=== PATIENT | male | born 1975 | race Caucasian/White ===

== ENCOUNTER 2017-02-07 18:05 | Emergency (ER) | payer OTHER ==
--- NOTE | 2017-02-07 19:35 | RAD ---
INDICATION: Right testicular pain. COMPARISON: There are no prior studies available for comparison. TECHNIQUE: Multiple real-time images of the testicles were obtained including color Doppler images and Doppler tracings. FINDINGS: The testicles are normal in size, shape and echogenicity. The right testicle measured 4.0 x 2.3 x 3.1 cm and the left testicle measured 4.1 x 2.0 x 2.7 cm. No intratesticular mass is seen. There is symmetric vascular flow within both testicles. The epididymides appear to be within normal limits. IMPRESSION: NEGATIVE EXAM.
[2017-02-07 20:59] LABS: Urine Bilirubin Negative (Negative); Urine Glucose Negative (Negative); Urine Nitrite Negative (Negative)
[2017-02-07 21:01] LABS: Hematocrit 45 % (42-52); Hemoglobin 15.2 g/dl (14.0-18.0); Mean Corpuscular HGB Conc 34 g/dl (31-36); Mean Corpuscular Hemoglobin 27 pg (27-31); Mean Corpuscular Volume 80 fL (80-94); Mean Platelet Volume 7 um3 (7.4-10.4); Red Blood Count 5.61 10^6/ul (4.0-5.4); Red Cell Distribution Width 13 % (10.5-15); White Blood Count 8.5 10^3/ul (3.5-10.8)
[2017-02-07 21:18] LABS: BUN/Creatinine Ratio 13.1 (8-20); Calcium 9.8 mg/dL (8.6-10.3); EGFR African American 97.9 (>60); EGFR Non-African American 76.2 (>60); Globulin 2.6 g/dL (2-4); Potassium 3.9 mmol/L (3.5-5.0); Total Bilirubin 0.4 mg/dL (0.2-1.0); Total Protein 7.6 g/dL (6.4-8.9)
[2017-02-07] MEDS ORDERED: Ketorolac INJ* 30 MG/ML 1 ML VIAL IV PUSH ONE (21:22)
[2017-02-07] MEDS ORDERED: Ciprofloxacin TAB* 500 MG PO ONE (21:52)
[2017-02-08 00:54] VITALS: BP 106/85
--- NOTE | 2017-02-09 09:28 | ED ---
Usman Matta Aidan, scribed for Heriberto Jaeger MD on 02/07/17 at 2147 . GI/ HPI - HPI Summary HPI Summary: 41 y/o male presents to the ED with a complaint of acute, constant, moderate (5/ 10) right testicular pain that began 6 days ago and has persisted since. The pain often radiates up to his RLQ when he is seated. Last week, his right testicle ascended up for some time. Currently, his right testicle is more ascended than his left. Standing up and masturbating aggravates his testicular pain. Though Naproxen did not alleviate any pain, Ibuprofen mildly alleviated his pain. Associated symptoms include right testicular numbness and tingling. Pt denies any blood, discharge, recent injury, or difficulty urinating. - History of Current Complaint Chief Complaint: EDUrogenitalProblems Time Seen by Provider: 02/07/17 20:17 Stated Complaint: PELVIC PAIN-SENT FROM [facility] Obtained From: Patient Onset/Duration: Started Days Ago, Still Present Timing: Constant, Lasting Days Severity: Moderate Current Severity: Moderate Pain Intensity: 5 Location of Pain: Groin - right testicle Additional Locations for Males: Testicles - right testicle and groin Pain Characteristics: Sharp, Other: - some numbness and tingling in right testicle Pain Radiates to: RLQ Associated Signs and Symptoms: Positive: Other: - episodes of numbness and tingling in right testicle Aggravating Factor(s): Movement - standing up and masturbation aggravates the pain Alleviating Factor(s): OTC Analgesics - Ibuprofen mildly alleviated pain - Allergy/Home Medications Allergies/Adverse Reactions: Allergies Allergy/AdvReac Type Severity Reaction Status Date / Time No Known Allergies Allergy Verified 02/07/17 18:24 PMH/Surg Hx/FS Hx/Imm Hx - Immunization History Date of Tetanus Vaccine: utd Date of Influenza Vaccine: none Infectious Disease History: No Infectious Disease History: Denies: Traveled Outside the [place] in Last 30 Days - Social History Occupation: Student Lives: Alone Alcohol Use: Weekly Alcohol Amount: 1-2 Substance Use Type: Reports: None Smoking Status (MU): Never Smoked Tobacco Review of Systems Negative: Fever, Chills, Fatigue, Skin Diaphoresis Negative: Photophobia, Blurred Vision, Diplopia, Drainage, Erythema Negative: Epistaxis, Dental Pain, Sore Throat, Ear Ache, Nasal Discharge Negative: Palpitations, Chest Pain Negative: Shortness Of Breath, Cough Negative: Abdominal Pain, Vomiting, Diarrhea, Nausea Genitourinary: Other - right testicular pain, numbness, and tingling Negative: burning, dysuria, discharge, frequency, flank pain, hematuria, incontinence, urgency Negative: Arthralgia, Myalgia, Decreased ROM, Edema Negative: Rash, Bruising Negative: Headache, Weakness, Paresthesia, Numbness, Syncope, Slurred Speech Negative: Anxious, Depressed All Other Systems Reviewed And Are Negative: Yes Physical Exam - Summary Physical Exam Summary: Constitutional: Well-developed, Well-nourished, Alert. (-) Distressed Skin: Warm, Dry HENT: Normocephalic; Atraumatic Eyes: Conjunctiva normal Neck: Musculoskeletal ROM normal neck. (-) JVD, (-) Stridor, (-) Tracheal deviation Cardio: Rhythm regular, rate normal, Heart sounds normal; Intact distal pulses; The pedal pulses are 2+ and symmetric. Radial pulses are 2+ and symmetric. (-) Murmur Pulmonary/Chest wall: Effort normal. (-) Respiratory distress, (-) Wheezes, (-) Rales Abd: Soft, (-) Tenderness, (-) Distension, (-) Guarding, (-) Rebound Musculoskeletal: (-) Edema Lymph: (-) Cervical adenopathy Neuro: Alert, Oriented x3 Psych: Mood and affect Normal Right testicle is notably elevated compared to left examined in the supine and upright positions: non-palpable hernias, epididymal tenderness No prostate tenderness or enlargement, chaperoned by Sandra Vital Signs On Initial Exam: Initial Vitals Temp Pulse Resp BP Pulse Ox 98.1 F 110 18 149/96 99 02/07/17 18:21 02/07/17 18:21 02/07/17 18:21 02/07/17 18:21 02/07/17 18:21 Diagnostics - Vital Signs Vital Signs Temp Pulse Resp BP Pulse Ox 02/07/17 18:21 98.1 F 110 18 149/96 99 - Laboratory Lab Results: Lab Results 02/07/17 02/07/17 02/07/17 Range/Units 20:00 20:45 20:45 WBC 8.5 (3.5-10.8) 10^3/ul RBC 5.61 H (4.0-5.4) 10^6/ul Hgb 15.2 (14.0-18.0) g/dl Hct 45 (42-52) % MCV 80 (80-94) fL MCH 27 (27-31) pg MCHC 34 (31-36) g/dl RDW 13 (10.5-15) % Plt Count 278 (150-450) 10^3/ul MPV 7 L (7.4-10.4) um3 Sodium 138 (133-145) mmol/L Potassium 3.9 (3.5-5.0) mmol/L Chloride 102 (101-111) mmol/L Carbon Dioxide 29 (22-32) mmol/L Anion Gap 7 (2-11) mmol/L BUN 14 (6-24) mg/dL Creatinine 1.07 (0.67-1.17) mg/dL Est GFR ( Amer) 97.9 (>60) Est GFR (Non-Af Amer) 76.2 (>60) BUN/Creatinine Ratio 13.1 (8-20) Glucose 92 (70-100) mg/dL Calcium 9.8 (8.6-10.3) mg/dL Total Bilirubin 0.40 (0.2-1.0) mg/dL AST 34 (13-39) U/L ALT 75 H (7-52) U/L Alkaline Phosphatase 60 (34-104) U/L Total Protein 7.6 (6.4-8.9) g/dL Albumin 5.0 (3.2-5.2) g/dL Globulin 2.6 (2-4) g/dL Albumin/Globulin Ratio 1.9 (1-3) Urine Color Straw Urine Appearance Clear Urine pH 7.0 (5-9) Ur Specific [place] 1.009 L (1.010-1.030) Urine Protein Negative (Negative) Urine Ketones Negative (Negative) Urine Blood Negative (Negative) Urine Nitrate Negative (Negative) Urine Bilirubin Negative (Negative) Urine Urobilinogen Negative (Negative) Ur Leukocyte Esterase Negative (Negative) Urine Glucose Negative (Negative) Result Diagrams: 02/07/17 20:45 02/07/17 20:45 Lab Statement: Any lab studies that have been ordered have been reviewed, and results considered in the medical decision making process. - Ultrasound No standard instances Ultrasound Interpretation: No Acute Changes - TESTICULAR US IMPRESSION: NEGATIVE EXAM Ultrasound Interpretation Completed By: Radiologist GIGU Course/Dx - Course Course Of Treatment: no evidence of testicular torsion, no significant prostatitis urine cultures are pending, no hernia - Diagnoses Provider Diagnoses: Testicular abnormality Discharge - Discharge Plan Condition: Stable Disposition: HOME Discharge Disposition Comment: Please follow up with urology on Friday and return to the ER if sx change. Prescriptions: Ciprofloxacin TAB* [Cipro 500 MG TAB*] 500 mg PO BID #42 tab Naproxen TAB* [Naprosyn TAB*] 500 mg PO Q8H PRN #30 tab PRN Reason: Pain - Moderate To Severe traMADol TAB* [Ultram*] 50 mg PO Q6HR PRN #10 tab MDD 4 PRN Reason: Pain - Moderate To Severe Forms: *Work Release Referrals: [facility] [Primary Care Provider] - Nahun Damico MD [Medical Doctor] - The documentation as recorded by the Usman morgan Aidan accurately reflects the service I personally performed and the decisions made by , Heriberto Jaeger MD.
== END 2017-02-08 00:29 | disposition home or self-care (01) ==
LOC: ED 18:05
DX: N50.9 Disorder of male genital organs, unspecified (principal); R10.2 Pelvic and perineal pain
CPT/HCPCS: 36415; 76870; 80053; 81003; 85027; 87086; 96374; 99283; A9270-GY; J1885